=== PATIENT | female | born 1955 | race Caucasian/White ===

== ENCOUNTER 2019-07-24 21:09 | Observation (INO) | payer SELFPAY ==
[~2019-07-24] VITALS: Ht 167.7 cm; Wt 58.4 kg
[~2019-07-24 21:09] MED LIST changes: -ACHD5005 PO; -AMOX500C2 PO; -CLIN300C11 PO; -FLUO40CA12 PO; -IBUP-30 PO; -LISI-552 PO; -METO100T12 PO; -MULT1TAB69 PO; -NF-ZONI100 PO
[2019-07-24] MEDS ORDERED: fentaNYL INJECTION 100 MCG/2 ML AMP IVP ONE (22:00)
--- NOTE | 2019-07-24 22:05 | ED Lower Extremity ---
General Chief Complaint: Lower Extremity Stated Complaint: RT LOWER EXTREMITY PAIN Source: patient Exam Limitations: no limitations (KOKI HE) History of Present Illness Date Seen by Provider: Jul 24, 2019 Time Seen by Provider: 21:45 Initial Comments Patient presents to ER by no private conveyance with her Efren and chief complaint that she fell 16 days ago on Wednesday, July 08. She was walking up her porch approximately 2 steps fell backwards onto her right hip. She had pain at that time and her right hip but was able to walk. She did not get checked out until the bruising and swelling settled down into her foot causing her some difficulty walking about 2 days ago she [place]. She rates her pain now 8 out of 10. She had some leftover oxycodone from her previous injury which she has using for pain but has ran out and is why she went to urgent care. Urgent care ordered CT of her pelvis which was completed outpat ient today and report was called and at 17:30. They called her and told her to come to the ER for management. at the time of the fall she was having no pain low her hip. She's having no numbness or tingling. She does not take blood thinners. She ate dinner at 1730. (KOKI HE) Allergies and Home Medications Allergies Coded Allergies: Sulfa (Sulfonamide Antibiotics) (Verified Allergy, Unknown, 07/25/19) Home Medications Clindamycin Hcl 300 Mg Capsule, 1 EACH PO QID FOR INFECTION Prescribed by: OSVALDO ESPITIA on 08/19/111936 Diclofenac Sodium 75 Mg Tablet.dr, 75 MG PO BID, (Reported) Fluoxetine Hcl 20 Mg Capsule, 1 EACH PO BID, (Reported) Losartan/Hydrochlorothiazide 1 Tab Tablet, 1 TAB PO BID, (Reported) Metoprolol Tartrate 50 Mg Tablet, 1 EACH PO BID, (Reported) Prednisone 5 Mg Tab, 5 MG PO UD TAKE 12 PILLS DAY 1, THEN DECREASE BY 1 PILL A DAY UNTIL GONE FOR RASH Prescribed by: OSVALDO ESPITIA on 08/19/111936 Patient Home Medication List Home Medication List Reviewed: Yes (KOKI HE) Review of Systems Constitutional: No chills, No diaphoresis EENTM: No ear discharge, No ear pain Respiratory: No cough, No phlegm, No short of breath Cardiovascular: No chest pain, No edema Gastrointestinal: No abdominal pain, No constipation, No diarrhea, No nausea Genitourinary: No discharge, No dysuria Musculoskeletal: see HPI; No back pain; joint pain (right hip and right foot) (KOKI HE) Past Vlqhvsv-Yzzxgi-Kpghtw Hx Patient Social History Alcohol Use: Denies Use Alcohol Beverage of Choice: Beer Recreational Drug Use: No Smoking Status: Current Everyday Smoker Type Used: Cigarettes Recent Foreign Travel: No Contact w/Someone Who Travel: No (KOKI HE) Immunizations Up To Date Tetanus Booster (TDap): Unknown PED Vaccines UTD: Yes (KOKI HE) Past Medical History Surgeries: Yes (BOWEL RESECTION) Bowel Surgery, Section Respiratory: No Cardiac: Yes Hypertension Neurological: No Genitourinary: No Gastrointestinal: Yes (BOWEL RESECTION) Musculoskeletal: Yes Fractures Endocrine: No HEENT: No Cancer: No Psychosocial: No Integumentary: No Blood Disorders: No Adverse Reaction/Blood Tranf: No (KOKI HE) Physical Exam Vital Signs Vital Signs - First Documented 07/24/19 21:30 Temp 36.8 Pulse 86 Resp 20 B/P (MAP) 159/104 (122) Pulse Ox 96 O2 Delivery Room Air (DAWOOD MARINELLI MD) Vital Signs Capillary Refill : (KOKI HE) Height, Weight, BMI Height: '" Weight: lbs. oz. kg; BMI Method:Stated General Appearance: WD/WN, mild distress HEENT: PERRL/EOMI, pharynx normal (oral mucosa moist) Neck: full range of motion, normal inspection Cardiovascular: normal peripheral pulses, regular rate, rhythm Respiratory: no respiratory distress, no accessory muscle use Gastrointestinal: normal bowel sounds, non tender, soft Hips: left hip non-tender; bilateral hip normal inspection; left hip normal range of motion, left hip no evidence of injury; right hip bone tenderness (over the greater trochanter) Feet: left foot non-tender, left foot normal inspection; bilateral foot normal range of motion; left foot no evidence of injury; right foot swelling, right foot other (ecchymoses and 1+ pitting edema) Neurologic/Tendon: normal sensation, normal motor functions, responds to pain, no evidence tendon injury Neurologic/Psychiatric: alert, normal mood/affect, oriented x 3 Skin: ecchymosis (right lower extremity) (KOKI HE) Progress/Results/Core Measures Results/Orders Lab Results Laboratory Tests Test 07/24/19 22:23 07/24/19 23:48 Range/Units White Blood Count 11.2 H 4.3-11.0 10^3/uL Red Blood Count 3.34 L 4.35-5.85 10^6/uL Hemoglobin 10.3 L 11.5-16.0 G/DL Hematocrit 33 L 35-52 % Mean Corpuscular Volume 99 80-99 FL Mean Corpuscular Hemoglobin 31 25-34 PG Mean Corpuscular Hemoglobin Concent 31 L 32-36 G/DL Red Cell Distribution Width 16.1 H 10.0-14.5 % Platelet Count 389 130-400 10^3/uL Mean Platelet Volume 10.2 7.4-10.4 FL Neutrophils (%) (Auto) 56 42-75 % Lymphocytes (%) (Auto) 16 12-44 % Monocytes (%) (Auto) 12 0-12 % Eosinophils (%) (Auto) 16 H 0-10 % Basophils (%) (Auto) 0 0-10 % Neutrophils # (Auto) 6.3 1.8-7.8 X 10^3 Lymphocytes # (Auto) 1.8 1.0-4.0 X 10^3 Monocytes # (Auto) 1.3 H 0.0-1.0 X 10^3 Eosinophils # (Auto) 1.7 H 0.0-0.3 10^3/uL Basophils # (Auto) 0.1 0.0-0.1 10^3/uL Neutrophils % (Manual) 60 % Lymphocytes % (Manual) 17 % Monocytes % (Manual) 11 % Eosinophils % (Manual) 10 % Band Neutrophils 1 % Blood Morphology Comment NORMAL Prothrombin Time 12.8 12.2-14.7 SEC INR Comment 0.9 0.8-1.4 Activated Partial Thromboplast Time 27 24-35 SEC Sodium Level 140 135-145 MMOL/L Potassium Level 4.3 3.6-5.0 MMOL/L Chloride Level 105 98-107 MMOL/L Carbon Dioxide Level 22 21-32 MMOL/L Anion Gap 13 5-14 MMOL/L Blood Urea Nitrogen 34 H 7-18 MG/DL Creatinine 2.03 H 0.60-1.30 MG/DL Estimat Glomerular Filtration Rate 25 BUN/Creatinine Ratio 17 Glucose Level 90 70-105 MG/DL Calcium Level 9.4 8.5-10.1 MG/DL Corrected Calcium 9.5 8.5-10.1 MG/DL Total Bilirubin 0.2 0.1-1.0 MG/DL Aspartate Amino Transf (AST/SGOT) 18 5-34 U/L Alanine Aminotransferase (ALT/SGPT) 12 0-55 U/L Alkaline Phosphatase 98 40-136 U/L C-Reactive Protein High Sensitivity 3.94 H 0.00-0.50 MG/DL Total Protein 7.0 6.4-8.2 GM/DL Albumin 3.9 3.2-4.5 GM/DL Urine Color YELLOW Urine Clarity CLEAR Urine pH 6 5-9 Urine Specific [place] 1.010 L 1.016-1.022 Urine Protein NEGATIVE NEGATIVE Urine Glucose (UA) NEGATIVE NEGATIVE Urine Ketones NEGATIVE NEGATIVE Urine Nitrite NEGATIVE NEGATIVE Urine Bilirubin NEGATIVE NEGATIVE Urine Urobilinogen NORMAL NORMAL MG/DL Urine Leukocyte Esterase 2+ H NEGATIVE Urine RBC (Auto) NEGATIVE NEGATIVE Urine RBC NONE /HPF Urine WBC 2-5 /HPF Urine Crystals NONE /LPF Urine Bacteria NEGATIVE /HPF Urine Casts NONE /LPF Urine Mucus NEGATIVE /LPF Urine Culture Indicated NO (DAWOOD MARINELLI MD) My Orders Orders - DAWOOD MARINELLI MD Hs C Reactive Protein (07/24/19 23:33) Ns Iv 1000 Ml (Sodium Chloride 0.9%) (07/24/19 23:52) Enoxaparin Injection (Lovenox Injection) (07/25/19 00:00) Clindamycin 900 Mg/50 Ml Ivpb (Cleocin P (07/25/19 00:00) (DAWOOD MARINELLI MD) Medications Given in ED Current Medications Medications Dose Ordered Sig/Silvino Route Start Time Stop Time Status Last Admin Dose Admin Clindamycin Phosphate/Dextrose 50 ml @ 100 mls/hr ONCE ONCE IV 07/25/19 00:00 07/25/19 00:29 DC 07/25/19 00:30 100 MLS/HR Enoxaparin Sodium 50 mg ONCE ONCE SC 07/25/19 00:00 07/25/19 00:01 DC 07/25/19 00:30 50 MG Fentanyl Citrate 50 mcg ONCE ONCE IVP 07/24/19 22:00 07/24/19 22:01 DC 07/24/19 22:32 50 MCG Sodium Chloride 1,000 ml @ 0 mls/hr Q0M ONCE IV 07/24/19 23:52 07/24/19 23:53 DC 07/25/19 00:29 1,000 MLS/HR (DAWOOD MARINELLI MD) Vital Signs/I&O 07/24/19 21:30 Temp 36.8 Pulse 86 Resp 20 B/P (MAP) 159/104 (122) Pulse Ox 96 O2 Delivery Room Air (DAWOOD MARINELLI MD) Progress Progress Note : Time: 22:07 Progress Note Concern for a venous clot in the right lower extremity related to the fracture and pitting edema on the right side versus maybe just venous compression from all the hematomas and subsequent edema from the fracture. A d-dimer would be unhelpful as it'll likely be elevated. A ultrasound would be very helpful however we do not have that available until tomorrow. We can either put her on Lovenox tonight or consider getting a CT with IV contrast of the lower extremity after we have her kidney function back. (KOKI HE) Progress Note : Time: 00:10 Progress Note Care of this patient was assumed from Dr. He. Labs were reviewed. Patient was reexamined. I have concerns about the heat and erythema of the right foot. This may be cellulitis. We are empirically treating with clindamycin. Patient does not appear septic. I believe DVT is less likely as there seems to be very little calf involvement. However, as a precaution we will give one dose of Lovenox tonight until ultrasound can be obtained. Patient is far enough out from her acute injury that there should be no increased bleeding risk associated with a dose of Lovenox. Patient has elevated BUN and creatinine suggesting acute kidney injury. IV hydration is being started in the ER with 1 L of IV fluids. We are also giving hydrocodone for pain. I discussed the fractures with Dr. Leal and shared CT imaging with him. He does not recommend surgery at this time. He recommends toe-touch weightbearing with walker or crutches. He is happy to see her in the outpatient setting. If patient has a prolonged hospital stay, he can be consulted during her hospital stay as well. I explained the situation to the patient and family. They are agreeable. I discussed the case with Dr. Vital who would like her admitted for observation. Patient would benefit from a PT evaluation and possibly a rehabilitation evaluation. (DAWOOD MARINELLI MD) Initial ECG Impression Date: Jul 24, 2019 Initial ECG Impression Time: 22:20 Initial ECG Rate: 85 Initial ECG Rhythm: Normal Sinus Comment Sinus rhythm with right bundle branch block. Multiple PVCs noted. No ST elevation or depression. (DAWOOD MARINELLI MD) Diagnostic Imaging Diagonstic Imaging: CT Plain Films/CT/US/NM/MRI: pelvis Comments Recent nondisplaced right subcapital femoral neck fracture. Mildly displaced and distracted recent appearing right greater trochanteric fracture. Scattered degenerative changes particularly in the lumbar spine with resulting bilateral neural foraminal stenoses. Hypodensity in the right inguinal region likely related to intramuscular hematoma with possible slight tearing of the right iliopsoas musculature. Focalin large lymph node felt less likely. Soft tissue swelling about right hip with associated intramuscular hematomas. Reviewed: Reviewed by Me (KOKI HE) Transfer of Care Time: 22:09 Care transferred to: Dr. Hdz (KOKI HE) Departure Communication (Admissions) Time/Spoke to Admitting Phy: 23:55 Dr. Vital (DAWOOD MARINELLI MD) Impression Primary Impression: Cellulitis of right foot Additional Impressions: Acute kidney injury Closed right hip fracture Qualified Codes: S72.001A - Fracture of unspecified part of neck of right femur, initial encounter for closed fracture Disposition: ADMITTED INPATIENT Condition: Improved Admissions Decision to Admit Reason: Admit from ER (General) Decision to Admit/Date: Jul 25, 2019 Time/Decision to Admit Time: 22:10 (DAWOOD MARINELLI MD) Departure-Patient Inst. Referrals: [facility] (PCP) Primary Care Physician AMPARO ASHLEY APRN (Family) Primary Care Physician Copy Copies To 1: YARED LEAL TITUS J Jul 24, 2019 22:05 DAWOOD HARO MD Jul 25, 2019 00:16 POS
[2019-07-24] MEDS: LACTATED RINGERS 1,000 ML IV SCH (22:32)
[2019-07-24 22:37] LABS: BASOPHILS # (AUTO) 0.1 10^3/uL (0.0-0.1); BASOPHILS % (AUTO) 0 % (0-10); EOSINOPHILS # (AUTO) 1.7 10^3/uL (0.0-0.3); EOSINOPHILS % (AUTO) 16 % (0-10); HEMATOCRIT 33 % (35-52); HEMOGLOBIN 10.3 G/DL (11.5-16.0); LYMPHOCYTES # (AUTO) 1.8 X 10^3 (1.0-4.0); LYMPHOCYTES % (AUTO) 16 % (12-44); MEAN CORPUSCULAR HEMOGLOBIN 31 PG (25-34); MEAN CORPUSCULAR HGB CONC 31 G/DL (32-36); MEAN CORPUSCULAR VOLUME 99 FL (80-99); MEAN PLATELET VOLUME 10.2 FL (7.4-10.4); MONOCYTES # (AUTO) 1.3 X 10^3 (0.0-1.0); MONOCYTES % (AUTO) 12 % (0-12); NEUTROPHILS # (AUTO) 6.3 X 10^3 (1.8-7.8); NEUTROPHILS % (AUTO) 56 % (42-75); PLATELET COUNT 389 10^3/uL (130-400); RED CELL DISTRIBUTION WIDTH 16.1 % (10.0-14.5); WHITE BLOOD COUNT 11.2 10^3/uL (4.3-11.0)
[2019-07-24 22:50] LABS: INR 0.9 (0.8-1.4); PROTHROMBIN TIME PATIENT 12.8 SEC (12.2-14.7)
[2019-07-24 22:56] LABS: ALBUMIN 3.9 GM/DL (3.2-4.5); BILIRUBIN,TOTAL 0.2 MG/DL (0.1-1.0); CALCIUM 9.4 MG/DL (8.5-10.1); CREATININE SERUM 2.03 MG/DL (0.60-1.30); POTASSIUM 4.3 MMOL/L (3.6-5.0)
[2019-07-24 23:18] LABS: BAND NEUTROPHILS 1 %; EOSINOPHILS % (MANUAL) 10 %; LYMPHOCYTES % (MANUAL) 17 %; MONOCYTES % (MANUAL) 11 %; NEUTROPHILS % (MANUAL) 60 %; RBC MORPH NORMAL
[2019-07-24] MEDS ORDERED: NS IV 1000 ML 1,000 ML IV ONE (23:52)
[2019-07-24 23:55] LABS: BILIRUBIN,URINE NEGATIVE (NEGATIVE); CLARITY,URINE CLEAR; COLOR,URINE YELLOW; GLUCOSE, URINE (UA) NEGATIVE (NEGATIVE); KETONES,URINE NEGATIVE (NEGATIVE); LEUKOCYTE ESTERASE ,URINE 2+ (NEGATIVE); NITRITE,URINE NEGATIVE (NEGATIVE); PH,URINE 6 (5-9); PROTEIN,URINE NEGATIVE (NEGATIVE)
[2019-07-25] VITALS (7 sets, daily range): BP systolic 138–160; BP diastolic 74–100
[2019-07-25] MEDS ORDERED: ENOXAPARIN 60 MG/0.6 ML (LOVENOX) SYR SC ONE
[2019-07-25] MEDS ORDERED: CLINDAMYCIN 900 MG/50 ML IVPB 50 ML IV ONE
[2019-07-25 00:03] LABS: BACTERIA,URINE NEGATIVE /HPF
[2019-07-25] MEDS ORDERED: HYDROcodone/APAP 5 MG/325 MG (LORTAB) TAB ONE (00:20)
[2019-07-25] MEDS ORDERED: HYDROcodone/APAP 5 MG/325 MG (LORTAB) TAB PO ONE (00:30)
--- NOTE | 2019-07-25 01:45 | NUR ---
DINH CRUZ admitted to room 422-1, with an admitting diagnosis of Cellulitis at right foot, right hip fracture, and SARAH on 07/25/19 from ED via wheelchair, accompanied by staff and family.DINH CRUZ introduced to surroundings, call light, bed controls, phone, TV, temperature control, lights, meal times, smoking policy, visitor policy, side rail policy, bathrooms and showers. Patient Rights given to patient in the handbook. DINH CRUZ verbalizes understanding that [facility] is not responsible for the loss or damage to any personal effects or valuables that are kept in the patients posession during their hospitalization.
[2019-07-25] MEDS: HYDROcodone/APAP 5 MG/325 MG (LORTAB) TAB PO PRN ×5 (04:54→20:06)
[2019-07-25 05:29] LABS: BASOPHILS % (AUTO) 0 % (0-10); EOSINOPHILS # (AUTO) 1.4 10^3/uL (0.0-0.3); EOSINOPHILS % (AUTO) 16 % (0-10); HEMATOCRIT 30 % (35-52); HEMOGLOBIN 9.4 G/DL (11.5-16.0); LYMPHOCYTES # (AUTO) 1.9 X 10^3 (1.0-4.0); LYMPHOCYTES % (AUTO) 22 % (12-44); MEAN CORPUSCULAR HEMOGLOBIN 31 PG (25-34); MEAN CORPUSCULAR HGB CONC 31 G/DL (32-36); MEAN CORPUSCULAR VOLUME 99 FL (80-99); MEAN PLATELET VOLUME 10.2 FL (7.4-10.4); MONOCYTES # (AUTO) 0.9 X 10^3 (0.0-1.0); MONOCYTES % (AUTO) 10 % (0-12); NEUTROPHILS # (AUTO) 4.7 X 10^3 (1.8-7.8); NEUTROPHILS % (AUTO) 53 % (42-75); PLATELET COUNT 366 10^3/uL (130-400); WHITE BLOOD COUNT 8.9 10^3/uL (4.3-11.0)
[2019-07-25 05:53] LABS: CALCIUM 9.1 MG/DL (8.5-10.1); CREATININE SERUM 1.68 MG/DL (0.60-1.30); POTASSIUM 3.9 MMOL/L (3.6-5.0)
[2019-07-25] MEDS: NS IV 1000 ML 1,000 ML IV SCH ×3 (06:19→21:44)
[2019-07-25] MEDS: LACTATED RINGERS 1,000 ML IV SCH (08:53)
[2019-07-25] MEDS: CLINDAMYCIN 900 MG/50 ML IVPB 50 ML IV SCH ×2 (08:53→15:23)
--- NOTE | 2019-07-25 09:05 | Diagnostic Imaging Report ---
EXAMINATION: US Right Lower Extremity Venous Duplex. TECHNIQUE: Multiple real-time grayscale images were obtained over the right lower extremity in various projections. Additional spectral analysis and color Doppler duplex images were also obtained. HISTORY: Swelling FINDINGS: No comparison available. The right common femoral vein, deep femoral vein, superficial femoral vein and popliteal vein are patent with normal garcia scale and doppler appearance. There is normal respiratory variation and augmentation. IMPRESSION: 1. No DVT of the right lower extremity. Dictated by: Dictated on workstation # [id number]
--- NOTE | 2019-07-25 09:35 | Physical Therapy Evaluation ---
PT Evaluation-General Medical Diagnosis Admission Date Jul 25, 2019 at 00:16 Medical Diagnosis: R hip fracture, R foot cellulitis, SARAH Onset Date: Jul 25, 2019 Therapy Diagnosis Therapy Diagnosis: Generalized weakness/debility Precautions Precautions/Isolations: Fall Prevention, Standard Precautions Weight Bear Status Right Lower Extremity: Right Touch Toe Bearing Left Lower Extremity: Left Weight Bearing/Tolerated Toe touch weight bearing on RLE Referral Physician: Zahraa Reason for Referral: Evaluation/Treatment Medical History Pertinent Medical History: Smoking Current History Arrived at ER with persistent R foot pain and difficulty weightbearing. Fell off steps 16 days prior to admission and fx R hip without knowing. Reviewed History: Yes Social History Home: Single Level Current Living Status: Spouse Entry Into Home: Stairs With Railing PT Steps Into Home: 3 PT Steps Inside Home: 0 Prior Prior Level of Function SCALE: Activities may be completed with or without assistive devices. 8-Dkdkrzwobf-ujqoflf completes the activity by him/herself with no assistance from a helper. 5-Set-up or Clean-up Assistance-helper sets up or cleans up; patient completes activity. [place] assists only prior to or following the activity. 4-Supervision or Touching Assistance-helper provides verbal cues and/or touching/steadying and/or contact guard assistance as patient completes activity. Assistance may be provided throughout the activity or intermittently. 3-Partial/Moderate Assistance-helper does LESS THAN HALF the effort. [place] lifts, holds or supports trunk or limbs, but provides less than half the effort. 2-Substantial/Maximal Assistance-helper does MORE THAN HALF the effort. [place] lifts or holds trunk or limbs and provides more than half the effort. 8-Elllmpxwv-uczxed does ALL the effort. Patient does none of the effort to complete the activity. Or, the assistance of 2 or more helpers is required for the patient to complete the activity. If activity was not attempted, code reason: 7-Patient Refused. 9-Not Applicable-not attempted and the patient did not perform the activity before the current illness, exacerbation or injury. 10-Not Attempted due to Environmental Limitations-(lack of equipment, weather restraints, etc.). 88-Not Attempted due to Medical Conditions or Safety Concerns. Bed Mobility: 6 Transfers (B,C,W/C): 6 Gait: 6 Stairs: 6 Indoor Mobility (Ambulation): Independent Stairs: Independent Prior Devices Use: None PT Evaluation-Current Subjective Patient and agree to PT at this time. Patient reports that she has difficulty with TTWB because it hurts the R foot to walk on the ball of foot. Pain Numeric Pain Scale: 8 Location: Right Location Body Site: Foot Pain Description: Ache Comment: and hip Objective Patient Orientation: Person, Place, Time, Situation Problem Solving: Good Attachments: IV ROM/Strength ROM Lower Extremities WFL; limited R foot DF d/t swelling Strength Lower Extremities grossly 4/5 Integumentary/Posture Integumentary See nursing notes Bowel Incontinence: No Bladder Incontinence: No Posture WFL Neuromuscular (Tone, Coordination, Reflexes) grossly intact Sensory Vision: Functional Hearing: Functional Transfers Roll Left to Right (QC): 6 Lying to Sitting/Side of Bed(Q: 6 Sit to Stand (QC): 6 Gait Does the Patient Walk?: Yes Mode of Locomotion: Walk Anticipated Mode of Locomotion: Walk Distance (FIM): 3=007-86 ft Walk 10 feet (QC): 6 Walk 50 ft with 2 Turns(QC): 88 Walk 150 ft (QC): 88 Walking 10ft/uneven surface-QC: 88 Distance: 20' Gait Assistive Device: FWW Comments/Gait Description Difficulty with TTWB and WB through UE on walker, step to pattern, sometimes NWB on R foot Balance Sitting Static: Normal Sitting Dynamic: Normal Standing Static: Normal Standing Dynamic: Normal Picking up an Object (QC): 88 Treatment seated EX: LAQ, ankle pumps x10 Assessment/Needs Patient able to perform bed mobility and transfers independently without assistance or cues. Patient educated on definition of TTWB and how to perform ambulation with walker. Patient able to demonstrate TTWB for 20' in room. Patient able to transfer to chair independently and tolerated seated LE exercises well. Rehab Potential: Good PT Sand Miller Goals Sand Miller Goals PT Sand Miller Goals Time Frame: Aug 04, 2019 Sit to Lying (QC): 6 Lying-Sitting on Side/Bed(QC): 6 Sit to Stand (QC): 6 Roll Left to Right (QC): 6 Chair/Vzs-ft-Qxxom Xfer(QC): 6 Car Transfer (QC): 6 Does the Patient Walk: Yes Distance: 200' Walk 10 feet (QC): 6 Walk 10ft-Uneven Surface(QC): 6 Walk 50ft with 2 Turns (QC): 6 Walk 150 ft (QC): 6 Gait Assistive Device: FWW # of Steps: 3 1 Step (curb) (QC): 6 PT Plan Problem List Problem List: Activity Tolerance, Functional Strength, Safety, Balance, Gait, Transfer, Bed Mobility Treatment/Plan Treatment Plan: Continue Plan of Care Treatment Plan: Bed Mobility, Education, Functional Activity Christina, Functional Strength, Gait, Safety, Therapeutic Exercise, Transfers Treatment Duration: Aug 04, 2019 Frequency: 11 times per week Estimated Hrs Per Day: .5 hour per day Patient and/or Family Agrees t: Yes Safety Risks/Education Patient Education: Gait Training Teaching Recipient: Patient Teaching Methods: Demonstration, Discussion Response to Teaching: Verbalize Understanding, Return Demonstration Time/GCodes Time In: 815 Time Out: 831 Total Billed Treatment Time: 16 Total Billed Treatment 1 visit EVM 16min AKI HURST PT Jul 25, 2019 09:35 POS
[2019-07-25] MEDS ORDERED: METO100T12 PO (10:07)
[2019-07-25] MEDS ORDERED: IBUP-30 PO (10:07)
[2019-07-25] MEDS ORDERED: NF-ZONI100 PO ×2 (10:07)
[2019-07-25] MEDS ORDERED: MULT1TAB69 PO (10:07)
[2019-07-25] MEDS ORDERED: FLUO40CA12 PO (10:26)
[2019-07-25] MEDS ORDERED: AMOX500C2 PO (10:27)
--- NOTE | 2019-07-25 10:28 | NUR ---
CALLED [facility] FOR A LIST OF RECENTLY FILLED MEDICATIONS. WENT OVER IT WITH THE PATIENT. [facility] FILLED: 07-04-19 METOPROLOL TARTRATE 100MG BID 06-30-19 PERCOCET 5-325MG TID #84 (STATES THIS IS GONE AND THEY WILL NOT PRESCRIBE IT ANYMORE) 06-26-19 PROZAC 40MG BID #180 (TAKES 2 IN THE AM) 06-14-19 CELEBREX 200MG DAILY #30 (STOPPED, DID NOT FEEL IT WORKED) 06-06-19 ZONEGRAN 100MG 3 DAILY #90 (TAKES 1 AM SCHEDULED AND 1 BID PRN SEIZURE ACTIVITY) 02-01-19 LORAZEPAM 1MG DAILY PRN (NO LONGER TAKING, THEY WILL NOT REFILL) [facility] FILLED AMOXICILLIN 07-22-19 - THAT SAME DAY SHE HAD A SCRIPT FOR HYDROCODONE, THEY DID NOT FILL IT AND DO NOT HAVE THE SCRIPT ANYMORE SO IT IS ASSUMED THEY GAVE IT BACK TO THE PATIENT. IT HAS NOT BEEN FILLED ACCORDING TO [facility]. SHE TAKES A MTV DAILY AND IBU 4 PRN OTC.
--- NOTE | 2019-07-25 11:38 | History & Physical ---
MER VEE,MED STUDENT 07/25/19 1138: HPI History of Present Illness: 64 yo female presented to the ED for right hip pain and swelling/redness of RLE. She states she had a fall 07/08/19 when she missed a step and fell backward onto her right hip. She noted some swelling, bruising and mild pain to the area immediately but continued to ambulate. The pain started to worsen about 5 days ago along with redness and swelling of her right foot. She states her right foot feels "tight" from the swelling and is tender making it hard to ambulate. She was seen in urgent care yesterday and an outpatient CT was ordered, from there she was seen in the ED and admitted. Source: patient Exam Limitations: no limitations Date seen by provider: Jul 25, 2019 Time Seen by Provider: 10:10 Attending Physician Ricci Chavarria MD PCP [facility] Of Consult Date of Admission Jul 25, 2019 at 00:16 Home Medications Home Medications Reviewed patient Home Medication Reconciliation performed by pharmacy medication reconciliations research laboratory technician and/or nursing. Patients Allergies have been reviewed. Allergies Coded Allergies: Sulfa (Sulfonamide Antibiotics) (Verified Allergy, Unknown, 07/25/19) JQC-Naljce-Gnuceq Hx Patient Social History Marrital Status: Alcohol Use: Denies Use Recreational Drug Use: No Smoking Status: Current Everyday Smoker Type Used: Cigarettes Recent Foreign Travel: No Contact w/other who traveled: No Recent Infectious Disease Expo: No Immunizations Up To Date Tetanus Booster (TDap): Unknown Date of Influenza Vaccine: Jun 24, 2019 Past Medical History PMedHx: Hypertension PSurgHx: bowel resection Review of Systems ([facility]) Constitutional: No chills, No fever EENTM: No blurred vision, No nose congestion, No throat pain Respiratory: No cough, No short of breath Cardiovascular: No chest pain, No syncope Gastrointestinal: No abdominal pain, No constipation, No diarrhea, No nausea, No vomiting Genitourinary: No dysuria, No frequency, No incontinence Musculoskeletal: joint swelling, other (left leg/foot pain) Skin: No pruritus; other (redness/swelling of right foot, brusing along right LE) Psychiatric/Neurological: Denies Headache, Denies Weakness Reviewed Test Results Reviewed Test Results Lab Laboratory Tests 07/24/19 22:23: White Blood Count 11.2H, Red Blood Count 3.34L, Hemoglobin 10.3L, Hematocrit 33L, Mean Corpuscular Volume 99, Mean Corpuscular Hemoglobin 31, Mean Corpuscular Hemoglobin Concent 31L, Red Cell Distribution Width 16.1H, Platelet Count 389, Mean Platelet Volume 10.2, Neutrophils (%) (Auto) 56, Lymphocytes (%) (Auto) 16, Monocytes (%) (Auto) 12, Eosinophils (%) (Auto) 16H, Basophils (%) (Auto) 0, Neutrophils # (Auto) 6.3, Lymphocytes # (Auto) 1.8, Monocytes # (Auto) 1.3H, Eosinophils # (Auto) 1.7H, Basophils # (Auto) 0.1, Neutrophils % (Manual) 60, Lymphocytes % (Manual) 17, Monocytes % (Manual) 11, Eosinophils % (Manual) 10, Band Neutrophils 1, Blood Morphology Comment NORMAL, Prothrombin Time 12.8, INR Comment 0.9, Activated Partial Thromboplast Time 27, Sodium Level 140, Potassium Level 4.3, Chloride Level 105, Carbon Dioxide Level 22, Anion Gap 13, Blood Urea Nitrogen 34H, Creatinine 2.03H, Estimat Glomerular Filtration Rate 25, BUN/Creatinine Ratio 17, Glucose Level 90, Calcium Level 9.4, Corrected Calcium 9.5, Total Bilirubin 0.2, Aspartate Amino Transf (AST/SGOT) 18, Alanine Aminotransferase (ALT/SGPT) 12, Alkaline Phosphatase 98, C-Reactive Protein High Sensitivity 3.94H, Total Protein 7.0, Albumin 3.9 07/24/19 23:48: Urine Color YELLOW, Urine Clarity CLEAR, Urine pH 6, Urine Specific [place] 1.010L, Urine Protein NEGATIVE, Urine Glucose (UA) NEGATIVE, Urine Ketones NEGATIVE, Urine Nitrite NEGATIVE, Urine Bilirubin NEGATIVE, Urine Urobilinogen NORMAL, Urine Leukocyte Esterase 2+H, Urine RBC (Auto) NEGATIVE, Urine RBC NONE, Urine WBC 2-5, Urine Crystals NONE, Urine Bacteria NEGATIVE, Urine Casts NONE, Urine Mucus NEGATIVE, Urine Culture Indicated NO 07/25/19 04:59: White Blood Count 8.9, Red Blood Count 3.07L, Hemoglobin 9.4L, Hematocrit 30L, Mean Corpuscular Volume 99, Mean Corpuscular Hemoglobin 31, Mean Corpuscular Hemoglobin Concent 31L, Red Cell Distribution Width 16.0H, Platelet Count 366, Mean Platelet Volume 10.2, Neutrophils (%) (Auto) 53, Lymphocytes (%) (Auto) 22, Monocytes (%) (Auto) 10, Eosinophils (%) (Auto) 16H, Basophils (%) (Auto) 0, Neutrophils # (Auto) 4.7, Lymphocytes # (Auto) 1.9, Monocytes # (Auto) 0.9, Eosinophils # (Auto) 1.4H, Basophils # (Auto) 0.0, Sodium Level 142, Potassium Level 3.9, Chloride Level 109H, Carbon Dioxide Level 21, Anion Gap 12, Blood Urea Nitrogen 31H, Creatinine 1.68H, Estimat Glomerular Filtration Rate 31, BUN/Creatinine Ratio 18, Glucose Level 86, Calcium Level 9.1, C-Reactive Protein High Sensitivity 4.24H Radiology LE Doppler: No DVT of the right lower extremity. Hip CT: Recent nondisplaced right subcapital femoral neck fracture. Mildly displaced and distracted recent appearing right greater trochanteric fracture. Scattered degenerative changes, particularly within the lower lumbar spine were there is resulting bilateral neural foraminal stenosis. Hypodensity within the right inguinal region is felt to relate to intramuscular hematoma with possible slight tearing of the right iliopsoas musculature. Focal enlarged lymph node felt less likely. Ultrasound versus contrast enhanced CT would help to further evaluate. Soft tissue swelling about the right hip with associated intramuscular hematomas. Physical Exam-([facility]) Physical Exam Vital Signs VS - Last 72 Hours, by Label POS 07/24/19 07/25/19 07/25/19 07/25/19 21:30 01:39 02:29 03:41 Temp 36.8 36.8 36.1 Pulse 86 66 90 Resp 20 20 18 B/P (MAP) 159/104 (122) 152/91 (122) 160/100 Pulse Ox 96 96 99 O2 Delivery Room Air Room Air Room Air Room Air 07/25/19 07/25/19 07/25/19 07/25/19 04:25 08:00 08:00 09:36 Temp 36.2 36.8 36.8 Pulse 90 89 89 Resp 16 18 18 B/P (MAP) 141/92 (108) 153/74 (100) 153/74 (100) Pulse Ox 97 94 94 94 O2 Delivery Room Air Room Air Room Air Room Air Capillary Refill : Less Than 3 SecondsLess Than 3 Seconds General Appearance: WD/WN, no apparent distress HEENT: PERRL/EOMI; No scleral icterus (R), No scleral icterus (L) Neck: full range of motion, supple Respiratory: chest non-tender, lungs clear, normal breath sounds, no respiratory distress, no accessory muscle use Cardiovascular: regular rate, rhythm, no murmur Peripheral Pulses: 2+ Dorsalis Pedis (R), 2+ Left Dors-Pedis (L), 2+ Radial Pulses (R), 2+ Radial Pulses (L) Gastrointestinal: normal bowel sounds, non tender, soft, no organomegaly; No distended, No guarding, No rebound Extremities: no calf tenderness, swelling (minimal along RLE), other (right hip tender to palpation, normal sensation bilateral LE) Neurologic/Psychiatric: alert, oriented x 3, other Skin: ecchymosis (RLE), other (erythema and swelling R foot) Assessment/Plan Assessment/Plan Assessment & Plan 64 yo female with closed hip fracture from fall 07/08 and right foot cellulitis. Cellulitis of right foot Closed R hip fracture Continue IV Abx and IVF. Monitor erythema and swelling of RLE Ortho consulted - will follow-up outpatient per Dr. Leal Pain management as needed. Clinical Quality Measures DVT/VTE Risk/Contraindication: Risk Factor Score Per Nursin RFS Level Per Nursing on Admit: 4+=Very High RICCI CHAVARRIA MD 07/25/19 1728: HPI History of Present Illness: Agree with above Source: patient Exam Limitations: no limitations Home Medications Allergies Coded Allergies: Sulfa (Sulfonamide Antibiotics) (Verified Allergy, Unknown, 07/25/19) VQC-Bkrxpv-Uyljml Hx Patient Social History Living Status: Lives at home with Family Medical History Significant Family History: No Pertinent Family Hx Review of Systems ([facility]) Constitutional: no symptoms reported; No chills, No fever EENTM: no symptoms reported Respiratory: no symptoms reported; No cough, No short of breath Cardiovascular: no symptoms reported; No chest pain, No palpitations Gastrointestinal: no symptoms reported; No abdominal pain, No constipation, No diarrhea, No loss of appetite, No nausea, No vomiting Genitourinary: No dysuria, No frequency, No incontinence Musculoskeletal: joint swelling, other (left leg/foot pain) Skin: No pruritus; other Psychiatric/Neurological: No Symptoms Reported; Denies Headache, Denies Weakness Physical Exam-([facility]) Physical Exam General Appearance: WD/WN, no apparent distress HEENT: PERRL/EOMI Neck: non-tender, full range of motion Respiratory: chest non-tender, lungs clear, normal breath sounds, no respiratory distress, no accessory muscle use Cardiovascular: regular rate, rhythm, no murmur Gastrointestinal: normal bowel sounds, non tender, soft, no organomegaly Back: no CVA tenderness, no vertebral tenderness Extremities: swelling (minimal along RLE), other (right hip tender to palpation, normal sensation bilateral LE) Neurologic/Psychiatric: learning consultant II-XII nml as tested, no motor/sensory deficits, alert, oriented x 3, other Skin: other (erythema and swelling R foot) Lymphatic: no adenopathy Assessment/Plan Assessment/Plan Admission Status: Observation (1) Cellulitis of right foot Status: Acute Assessment & Plan: - Continue IV antibiotics, Will likely transition to PO antibiotics in the AM (2) Acute kidney injury Status: Acute Assessment & Plan: - Improving, will repeat BMP in AM (3) Closed right hip fracture Status: Acute Assessment & Plan: - Outpatient f.u Qualifiers: Qualified Codes: S72.001A - Fracture of unspecified part of neck of right femur, initial encounter for closed fracture (4) Seizure disorder Status: Chronic Assessment & Plan: - Continue home meds (5) HTN (hypertension) Status: Chronic Assessment & Plan: - Continue home meds Qualifiers: Qualified Codes: I10 - Essential (primary) hypertension Supervisory-Addendum Brief Verification & Attestation Participated in pt care: history, physical Personally performed: exam, history Care discussed with: Medical Student Procedures: n/a Verification and Attestation of Medical Student E/M Service A medical student performed and documented this service in my presence. I review ed and verified all information documented by the medical student and made modifications to such information, when appropriate. I personally performed the physical exam and medical decision making. Ricci Chavarria, Jul 25, 2019,17:46 MER VEE MED STUDENT Jul 25, 2019 11:38 RICCI HINDS MD Jul 25, 2019 17:28 POS
--- NOTE | 2019-07-25 15:25 | Physical Therapy Progress Note ---
Therapy Progress Note Patient declines PT at this time and has family present in the room. Patient states that she has been completing ankle pump and heel slide exercises in bed throughout the day and has been up to the bathroom 3 times. AIK HURST PT Jul 25, 2019 15:25 POS
[2019-07-25] MEDS: meTOprolol TARTRATE 50 MG (LOPRESSOR) TAB PO SCH (21:43)
[2019-07-26 00:05] VITALS: BP 163/99
[2019-07-26] MEDS: CLINDAMYCIN 900 MG/50 ML IVPB 50 ML IV SCH ×2 (00:26→07:47)
[2019-07-26] MEDS: HYDROcodone/APAP 5 MG/325 MG (LORTAB) TAB PO PRN ×3 (00:26→12:15)
[2019-07-26 04:00] VITALS: BP 163/99
[2019-07-26 04:45] VITALS: BP 167/100
[2019-07-26 05:47] LABS: BASOPHILS % (AUTO) 0 % (0-10); EOSINOPHILS # (AUTO) 1.3 10^3/uL (0.0-0.3); EOSINOPHILS % (AUTO) 15 % (0-10); HEMATOCRIT 31 % (35-52); HEMOGLOBIN 9.7 G/DL (11.5-16.0); LYMPHOCYTES # (AUTO) 1.6 X 10^3 (1.0-4.0); LYMPHOCYTES % (AUTO) 18 % (12-44); MEAN CORPUSCULAR HEMOGLOBIN 31 PG (25-34); MEAN CORPUSCULAR HGB CONC 32 G/DL (32-36); MEAN CORPUSCULAR VOLUME 98 FL (80-99); MONOCYTES # (AUTO) 0.9 X 10^3 (0.0-1.0); MONOCYTES % (AUTO) 11 % (0-12); NEUTROPHILS # (AUTO) 4.9 X 10^3 (1.8-7.8); NEUTROPHILS % (AUTO) 56 % (42-75); PLATELET COUNT 350 10^3/uL (130-400); RED CELL DISTRIBUTION WIDTH 15.9 % (10.0-14.5); WHITE BLOOD COUNT 8.7 10^3/uL (4.3-11.0)
[2019-07-26 06:06] LABS: CALCIUM 9.2 MG/DL (8.5-10.1); CREATININE SERUM 1.09 MG/DL (0.60-1.30)
[2019-07-26] MEDS: meTOprolol TARTRATE 50 MG (LOPRESSOR) TAB PO SCH (07:47)
[2019-07-26] MEDS: NS IV 1000 ML 1,000 ML IV SCH (07:50)
[2019-07-26 08:00] VITALS: BP 142/88
[2019-07-26] MEDS ORDERED: FLUoxetine HCL 20 MG (PROzac) CAP PO SCH (09:00)
[2019-07-26] MEDS ORDERED: ZONISAMIDE 100 MG CAP (ZONEGRAN) NON-FORMULARY PO SCH (09:00)
[2019-07-26] MEDS ORDERED: lisINopril 20 MG (PRINIVIL) TABLET PO SCH (09:30)
--- NOTE | 2019-07-26 11:04 | Physical Therapy Daily Note ---
PT Daily Note-Current Subjective Pt on EOB pre-tx. Pt agrees to PT this morning. Pt reports 10/10 pain in her R hip at this time and reports RN is aware and just gave pain meds. Pt reports she has been getting up on her own to go to the bathroom or to the chair. Pt states she has been getting up and unplugging her IV pole and walking with it instead of walker. Pt reports she is having difficulty maintaining TTWB with the IV pole. Appearance Pt in recliner with feet down post-tx. Pt with nurse call light, room phone, and tray table in reach with all needs met at this time. Mental Status Patient Orientation: Person, Place, Time, Situation Transfers SCALE: Activities may be completed with or without assistive devices. 6-Iwschhejjz-sjuulet completes the activity by him/herself with no assistance from a helper. 5-Set-up or Clean-up Assistance-helper sets up or cleans up; patient completes activity. [place] assists only prior to or following the activity. 4-Supervision or Touching Assistance-helper provides verbal cues and/or touching/steadying and/or contact guard assistance as patient completes activity. Assistance may be provided throughout the activity or intermittently. 3-Partial/Moderate Assistance-helper does LESS THAN HALF the effort. [place] lifts, holds or supports trunk or limbs, but provides less than half the effort. 2-Substantial/Maximal Assistance-helper does MORE THAN HALF the effort. [place] lifts or holds trunk or limbs and provides more than half the effort. 4-Yxtkxuvhg-tptidn does ALL the effort. Patient does none of the effort to complete the activity. Or, the assistance of 2 or more helpers is required for the patient to complete the activity. If activity was not attempted, code reason: 7-Patient Refused. 9-Not Applicable-not attempted and the patient did not perform the activity before the current illness, exacerbation or injury. 10-Not Attempted due to Environmental Limitations-(lack of equipment, weather restraints, etc.). 88-Not Attempted due to Medical Conditions or Safety Concerns. Sit to Stand (QC): 6 Chair/Kwj-kn-Yxmcx Xfer(QC): 6 Weight Bearing Right Lower Extremity: Right Touch Toe Bearing Left Lower Extremity: Left Weight Bearing/Tolerated Toe touch weight bearing on RLE Gait Training Does the Patient Walk?: Yes Distance: 40' Walk 10 feet (QC): 5 Gait Assistive Device: FWW PT advised pt of need for FWW to allow her to follow WB status and for safety over just using the IV pole. Pt verbally responded with understanding. Wheelchair Training Does the Pt Use a Wheelchair?: No Exercises Seated Therapy Exercises: Ankle pumps, Long arc quads, Hip flexion Seated Reps: 30 (15reps 2 sets) Treatments LE strengthening, Skilled ambulation training, transfer training. Assessment Current Status: Good Progress Pt is able to maintain WB status on the R LE when using the FWW. Pt c/o UE fatigue from ambulation. Pt demonstrated increased radha for gait distance. Advised patient to call nurse to help with IV pole when she has to get up. PT Coat Operator Goals Coat Operator Goals PT Mcfp Goals Time Frame: Aug 04, 2019 Sit to Lying (QC): 6 Lying-Sitting on Side/Bed(QC): 6 Sit to Stand (QC): 6 Roll Left to Right (QC): 6 Chair/Cqw-qt-Wzjpu Xfer(QC): 6 Car Transfer (QC): 6 Does the Patient Walk: Yes Distance: 200' Walk 10 feet (QC): 6 Walk 10ft-Uneven Surface(QC): 6 Walk 50ft with 2 Turns (QC): 6 Walk 150 ft (QC): 6 Gait Assistive Device: FWW # of Steps: 3 1 Step (curb) (QC): 6 PT Plan Problem List Problem List: Activity Tolerance, Functional Strength, Safety, Balance, Gait, Transfer Treatment/Plan Treatment Plan: Continue Plan of Care Treatment Plan: Bed Mobility, Education, Functional Activity Christina, Functional Strength, Gait, Safety, Therapeutic Exercise, Transfers Treatment Duration: Aug 04, 2019 Frequency: 11 times per week Estimated Hrs Per Day: .5 hour per day Patient and/or Family Agrees t: Yes Safety Risks/Education Patient Education: Gait Training, Transfer Techniques, Correct Positioning, Safety Issues Teaching Recipient: Patient Teaching Methods: Demonstration, Discussion Response to Teaching: Return Demonstration, Reinforcement Needed Time/GCodes Time In: 858 Time Out: 913 Total Billed Treatment Time: 15 Total Billed Treatment 1 visit FA 15' DORYSGILMER SANCHEZIS PT Jul 26, 2019 11:04 POS
[2019-07-26 12:36] VITALS: BP 169/82
--- NOTE | 2019-07-26 13:29 | Discharge Summary ---
Diagnosis/Chief Complaint Date of Admission Jul 25, 2019 at 00:16 Date of Discharge Discharge Diagnosis Problems/Diagnosis: (1) Cellulitis of right foot Assessment & Plan: - Continue IV antibiotics, Will likely transition to PO antibiotics in the AM Status: Acute (2) Acute kidney injury Assessment & Plan: - Improving, will repeat BMP in AM Status: Acute (3) Closed right hip fracture Assessment & Plan: - Outpatient f.u Qualifiers: Qualified Codes: S72.001A - Fracture of unspecified part of neck of right femur, initial encounter for closed fracture Status: Acute (4) Seizure disorder Assessment & Plan: - Continue home meds Status: Chronic (5) HTN (hypertension) Assessment & Plan: - Continue home meds Qualifiers: Qualified Codes: I10 - Essential (primary) hypertension Status: Chronic Chief Complaint/HPI Chief Complaint/HPI Agree with above Discharge Summary-Simple/Stand Consultations Discharge Physical Examination Allergies: Coded Allergies: Sulfa (Sulfonamide Antibiotics) (Verified Allergy, Unknown, 07/25/19) Vitals & I&Os Vital Sign - Last 12Hours Date Time Temp Pulse Resp B/P (MAP) Pulse Ox O2 Delivery O2 Flow Rate FiO2 07/26/19 12:36 36.0 90 16 169/82 (111) 96 Room Air Intake and Output 07/26/19 00:00 Intake Total 2340 ml Output Total 1800 ml Balance 540 ml Hospital Course See final discharge diagnosis. Radiology Reviewed LE Doppler: No DVT of the right lower extremity. Hip CT: Recent nondisplaced right subcapital femoral neck fracture. Mildly displaced and distracted recent appearing right greater trochanteric fracture. Scattered degenerative changes, particularly within the lower lumbar spine were there is resulting bilateral neural foraminal stenosis. Hypodensity within the right inguinal region is felt to relate to intramuscular hematoma with possible slight tearing of the right iliopsoas musculature. Focal enlarged lymph node felt less likely. Ultrasound versus contrast enhanced CT would help to further evaluate. Soft tissue swelling about the right hip with associated intramuscular hematomas. Discharge Instructions to patient/family Please see electronic discharge instructions given to patient. Discharge Medications Reviewed and agree with Discharge Medication list on patient's Discharge Instruction sheet Clinical Quality Measures DVT/VTE Risk/Contraindication: Risk Factor Score Per Nursin RFS Level Per Nursing on Admit: 4+=Very High RICCI CHAVARRIA MD Jul 26, 2019 13:29 POS
[2019-07-26] MEDS ORDERED: ACHD5005 PO (13:33)
[2019-07-26] MEDS ORDERED: LISI-552 PO (13:33)
[2019-07-26] MEDS ORDERED: CLIN300C11 PO (13:34)
--- NOTE | 2019-07-26 13:35 | Discharge Instructions ---
Discharge [facility] Reconcile Patient Problems Problems Reviewed?: Yes Discharge Medications New, Converted or Re-Newed RX: RX on Chart New Medications: Clindamycin HCl (Clindamycin HCl) 300 Mg Capsule 300 MG PO TID, #21 CAP Hydrocodone Bit/Acetaminophen (Hydrocodone/Acetaminophen 5/325mg Tablet) 1 Tab Tab 1-2 TAB PO Q4H PRN for PAIN-MODERATE, #30 TAB Lisinopril (Lisinopril) 20 Mg Tablet 20 MG PO DAILY, #30 TAB Continued Medications: Fluoxetine HCl (Prozac) 40 Mg Capsule 80 MG PO DAILY, CAP Ibuprofen (Advil) 200 Mg Tablet 800 MG PO TID PRN for PAIN-MILD, TAB Metoprolol Tartrate (Metoprolol Tartrate) 100 Mg Tablet 100 MG PO BID, TAB Multivitamin (Multivitamins) 1 Each Tablet 1 TAB PO DAILY, TAB Zonisamide (Zonegran) 100 Mg Capsule 100 MG PO DAILY, CAP Zonisamide (Zonegran) 100 Mg Capsule 100 MG PO BID PRN for SEIZURE ACTIVITY, CAP Patient Instructions Goal/Follow Up Appt: You have a f.u with Michael Truong on Aug 01 @ 1020 Patient Instructions: - Make sure to complete your antibiotics - Monitor redness and swelling Activity & Diet Discharge Diet: Cardiac Diet Activity as Tolerated: Yes Orders-Post D/C & Referrals Pneu Vac Indicated: Yes Copy Copies To 1: Michael HENRIQUEZ HOLLY R MD Jul 26, 2019 13:35 POS
--- NOTE | 2019-07-26 14:05 | Physical Therapy Daily Note ---
PT Daily Note-Current Subjective pt sitting EOB pre-tx. pt agrees to PT this afternoon. pt reports 4/10 pain in the R LE at this time. pt's in the room for duration of therapy. Pt reports she believes she maybe going home this afternoon. Appearance pt sitting in recliner with feet down post-tx with in room. pt with call light, room phone, tray table in reach and all needs met at this time. Mental Status Patient Orientation: Person, Place, Time, Situation Attachments: IV Transfers SCALE: Activities may be completed with or without assistive devices. 3-Kjodhxtdvd-cbjodek completes the activity by him/herself with no assistance from a helper. 5-Set-up or Clean-up Assistance-helper sets up or cleans up; patient completes activity. [place] assists only prior to or following the activity. 4-Supervision or Touching Assistance-helper provides verbal cues and/or touching/steadying and/or contact guard assistance as patient completes activity. Assistance may be provided throughout the activity or intermittently. 3-Partial/Moderate Assistance-helper does LESS THAN HALF the effort. [place] lifts, holds or supports trunk or limbs, but provides less than half the effort. 2-Substantial/Maximal Assistance-helper does MORE THAN HALF the effort. [place] lifts or holds trunk or limbs and provides more than half the effort. 3-Lakvsfnbm-xyaned does ALL the effort. Patient does none of the effort to complete the activity. Or, the assistance of 2 or more helpers is required for the patient to complete the activity. If activity was not attempted, code reason: 7-Patient Refused. 9-Not Applicable-not attempted and the patient did not perform the activity before the current illness, exacerbation or injury. 10-Not Attempted due to Environmental Limitations-(lack of equipment, weather restraints, etc.). 88-Not Attempted due to Medical Conditions or Safety Concerns. Sit to Stand (QC): 6 Weight Bearing Right Lower Extremity: Right Touch Toe Bearing Left Lower Extremity: Left Weight Bearing/Tolerated Toe touch weight bearing on RLE Gait Training Distance: 300' Walk 10 feet (QC): 6 Walk 50 ft with 2 Turns(QC): 6 Walk 150 ft (QC): 6 Gait Assistive Device: FWW pt maintains WB status through ambulation. Wheelchair Training Does the Pt Use a Wheelchair?: No Stair Training Stair Training: Handrails/: No handrail #of Steps: 10 1 Step (curb) (QC): 1 4 Steps (QC): 1 Stairs: Pattern: Hops pt has no handrails at home so pt practiced ambulating stairs with B/L modx2 hand holds. Pt could use hand holds to put weight through in order to maintain TTWB on the RLE. Pt was educated to step up steps with the LLE first and down steps with the RLE first. Treatments Pt performed transfer training, skilled ambulation training, and skilled stair training, and education this date. Assessment Current Status: Good Progress Pt able to ascend/descend steps with modAx2 for B/L handholds as she will at home without handrails. Pt is able to stand and ambulate independent for increased distance with FWW and is limited in distance by UE fatigue from using the FWW. PT Director Of [employer] Goals Skilled Nursing Goals PT Director Of [employer] Goals Time Frame: Aug 04, 2019 Sit to Lying (QC): 6 Lying-Sitting on Side/Bed(QC): 6 Sit to Stand (QC): 6 Roll Left to Right (QC): 6 Chair/Sox-xc-Jfvdx Xfer(QC): 6 Car Transfer (QC): 6 Does the Patient Walk: Yes Distance: 200' Walk 10 feet (QC): 6 Walk 10ft-Uneven Surface(QC): 6 Walk 50ft with 2 Turns (QC): 6 Walk 150 ft (QC): 6 Gait Assistive Device: FWW # of Steps: 3 1 Step (curb) (QC): 6 PT Plan Problem List Problem List: Activity Tolerance, Functional Strength, Safety, Balance, Gait, Transfer Treatment/Plan Treatment Plan: Continue Plan of Care Treatment Plan: Bed Mobility, Education, Functional Activity Christina, Functional Strength, Gait, Safety, Therapeutic Exercise, Transfers Treatment Duration: Aug 04, 2019 Frequency: 11 times per week Estimated Hrs Per Day: .5 hour per day Patient and/or Family Agrees t: Yes Safety Risks/Education Patient Education: Gait Training, Transfer Techniques, Steps, Correct Positioning, Safety Issues Teaching Recipient: Patient Teaching Methods: Demonstration, Discussion Response to Teaching: Return Demonstration, Reinforcement Needed Time/GCodes Time In: 1342 Time Out: 1354 Total Billed Treatment Time: 12 Total Billed Treatment 1 visit FA MEHRAN DIAZ PT Jul 26, 2019 14:05 POS
[2019-07-26 14:10] VITALS: BP 169/82
== END 2019-07-26 14:10 | disposition home or self-care (01) ==
LOC: EDUNIT# 21:09 → ER 21:11 → 4TH 07-25 00:16
PROVIDERS: ADMIT Family Medicine; ATTEND Family Medicine
DX: L03.115 Cellulitis of right lower limb (principal); S72.001A Fracture of unspecified part of neck of right femur, initial encounter for closed fracture; M25.551 Pain in right hip; N17.9 Acute kidney failure, unspecified; I10 Essential (primary) hypertension; G40.909 Epilepsy, unspecified, not intractable, without status epilepticus; F17.210 Nicotine dependence, cigarettes, uncomplicated; W01.0XXA Fall on same level from slipping, tripping and stumbling without subsequent striking against object, initial encounter; Z88.2 Allergy status to sulfonamides; Z79.899 Other long term (current) drug therapy
CPT/HCPCS: 36415; 80048; 80053; 81000; 85007; 85025; 85027; 85610; 85730; 86141; 93005; 96361; 96365; 96372; 96375; G0378

== ENCOUNTER → 2019-07-24 | Outpatient (CLI) | payer SELFPAY ==
[~2019-07-24] MED LIST: ACHD5005 PO; AMOX500C2 PO; CLIN300C11 PO; CLIN300C3 PO; DICL75TA2 PO; FLUO20CA25 PO; FLUO40CA12 PO; IBUP-30 PO; LISI-552 PO; LOSA1TAB3 PO; METO100T12 PO; MTP50T PO; MULT1TAB69 PO; NF-ZONI100 PO; PRD5T PO
--- NOTE | 2019-07-24 17:28 | Diagnostic Imaging Report ---
PROCEDURE: CT pelvis without contrast. TECHNIQUE: Multiple contiguous axial images were obtained through the pelvis without the use of intravenous contrast. Sagittal and coronal reformations were performed. Auto Exposure Controls were utilized during the CT exam to meet ALARA standards for radiation dose reduction. INDICATION: Fall, pain. COMPARISON: None available. FINDINGS: Grade I anterolisthesis of L5 on S1. Advanced degenerative changes are noted within the partially visualized lower lumbar spine. Bilateral neural foraminal stenosis at L5-S1 is present, right greater than left. The sacrum appears intact. Recent appearing nondisplaced right femoral subcapital fracturing identified. Additionally, fracturing of the right greater trochanter is present. The main fracture fragment is displaced posteromedially by nearly 1 cm. No additional acute fracture. No dislocation. Mvte-um-dcoyykpu degenerative changes of the bilateral hips with associated subchondral cyst formation within the right acetabular roof. The bilateral sacroiliac joints are intact with vacuum phenomenon present. The pubic symphysis is intact. Enlargement of the right iliopsoas musculature. 1.5 cm rounded hypodensity is present within the right inguinal region adjacent to the right iliopsoas musculature and possibly associated with the right iliopsoas musculature. This is best seen on series 2 image 133. Additional soft tissue swelling about the right hip. Scattered vascular calcifications. IMPRESSION: Recent nondisplaced right subcapital femoral neck fracture. Mildly displaced and distracted recent appearing right greater trochanteric fracture. Scattered degenerative changes, particularly within the lower lumbar spine were there is resulting bilateral neural foraminal stenosis. Hypodensity within the right inguinal region is felt to relate to intramuscular hematoma with possible slight tearing of the right iliopsoas musculature. Focal enlarged lymph node felt less likely. Ultrasound versus contrast enhanced CT would help to further evaluate. Soft tissue swelling about the right hip with associated intramuscular hematomas. CRITICAL FINDING Report given to Urgent Care Nurse (Shayne) at 5:27 p.m. 07/24/2019/cb Dictated by: Dictated on workstation # [id number]
== END ==
LOC: RAD 11:52
PROVIDERS: ATTEND Family Medicine
DX: S72.001A Fracture of unspecified part of neck of right femur, initial encounter for closed fracture (principal); M79.89 Other specified soft tissue disorders; S70.01XA Contusion of right hip, initial encounter
CPT/HCPCS: 72192

== ENCOUNTER 2019-08-02 15:18 | Emergency (ER) | payer SELFPAY ==
[~2019-08-02] VITALS: Ht 167.7 cm; Wt 55.4 kg
[~2019-08-02 15:18] MED LIST changes: +ACHD5005 PO; +AMOX500C2 PO; +CLIN300C11 PO; +FLUO40CA12 PO; +IBUP-30 PO; +LISI-552 PO; +METO100T12 PO; +MULT1TAB69 PO; +NF-ZONI100 PO
--- NOTE | 2019-08-02 16:34 | NUR ---
PT IN ULTRA SOUND
--- NOTE | 2019-08-02 16:50 | NUR ---
UNABLE TO FEEL PT PULSE ON R FOOT, UNABLE TO FIND PULSE W ULTRASOUND
--- NOTE | 2019-08-02 17:00 | NUR ---
IV IN L AC OUT, IV RESTARTED IN L EJ BY DR POLO, #18. IV BY ULTRASOUND TO R AC BY DR POLO
[2019-08-02 17:13] LABS: BASOPHILS # (AUTO) 0.1 10^3/uL (0.0-0.1); BASOPHILS % (AUTO) 1 % (0-10); EOSINOPHILS # (AUTO) 1.3 10^3/uL (0.0-0.3); EOSINOPHILS % (AUTO) 12 % (0-10); HEMATOCRIT 34 % (35-52); HEMOGLOBIN 10.9 G/DL (11.5-16.0); LYMPHOCYTES # (AUTO) 2.4 X 10^3 (1.0-4.0); LYMPHOCYTES % (AUTO) 24 % (12-44); MEAN CORPUSCULAR HEMOGLOBIN 30 PG (25-34); MEAN CORPUSCULAR HGB CONC 32 G/DL (32-36); MEAN CORPUSCULAR VOLUME 94 FL (80-99); MEAN PLATELET VOLUME 9.8 FL (7.4-10.4); MONOCYTES # (AUTO) 0.8 X 10^3 (0.0-1.0); MONOCYTES % (AUTO) 8 % (0-12); NEUTROPHILS # (AUTO) 5.6 X 10^3 (1.8-7.8); NEUTROPHILS % (AUTO) 55 % (42-75); PLATELET COUNT 511 10^3/uL (130-400); RED CELL DISTRIBUTION WIDTH 15.2 % (10.0-14.5); WHITE BLOOD COUNT 10.2 10^3/uL (4.3-11.0)
--- NOTE | 2019-08-02 17:18 | Diagnostic Imaging Report ---
INDICATION: Claudication of the right lower extremity. History of hypertension and smoking. COMPARISON: None. TECHNIQUE: Routine grayscale, color flow and duplex evaluation of the right lower extremity of the menarcheal system was performed. FINDINGS: There is scattered echogenic atherosclerotic disease throughout the right lower extremity arterial system. Normal triphasic waveform is identified within the right common femoral artery as well as the proximal and mid portions of the right superficial femoral artery. There is mixed monophasic and biphasic flow within the distal superficial femoral artery. Flow then continues as monophasic through the popliteal artery as well as the calf arteries. Diminished peak systolic velocities are also noted within the distal posterior tibial artery and dorsalis pedis artery. Despite this, grayscale and color flow images show no focal stenosis within the right common femoral or superficial femoral arteries. Visualized portions of the profunda femoral artery are patent. IMPRESSION: Scattered echogenic atherosclerotic disease with abnormal monophasic waveform and diminished peak systolic velocities within the popliteal artery and calf arteries, but no sonographic evidence of focal hemodynamically significant stenosis. Dictated by: Dictated on workstation # [id number]
[2019-08-02 17:32] LABS: ALBUMIN 4.2 GM/DL (3.2-4.5); BILIRUBIN,TOTAL 0.2 MG/DL (0.1-1.0); CALCIUM 9.5 MG/DL (8.5-10.1); CREATININE SERUM 1.84 MG/DL (0.60-1.30); POTASSIUM 4.4 MMOL/L (3.6-5.0); TOTAL PROTEIN 7.2 GM/DL (6.4-8.2)
--- NOTE | 2019-08-02 17:38 | ED Lower Extremity ---
General Chief Complaint: Lower Extremity Stated Complaint: R LEG POOR CIRCULATION Nursing Triage Note: Pt to ED in wheelchair. Pt reports recent discharge from hospital for fractured R hip. Pt now concerned about circulation in R foot. Pt saw PCP (Sakina Truong) today and was sent to ED. R toes discolored. This nurse unable to plapate pulse or R foot. Pt reports pain in R foot and hip. Nursing Sepsis Screen: No Definite Risk Source: patient Exam Limitations: no limitations History of Present Illness Date Seen by Provider: Aug 02, 2019 Time Seen by Provider: 17:42 Initial Comments To ER with reports of no holes being found on her routine follow-up visit in the right foot. She was admitted the hospital from July 24 to for a right hip fracture that was sustained during the fall on July 08, bruising and redness to the right foot. She was actually admitted for cellulitis right lower extremity, she states that the bruising and redness is markedly improved, the pain is still about a 5 out of 10, during follow-up visit today the dorsalis pedis pulse was unable to be palpated. She does smoke one half pack of cigarettes per day. She is not on aspirin or Plavix. Not diabetic. No history of peripheral stenting. Onset: just prior to arrival Severity: moderate Pain/Injury Location: right foot Method of Injury: fell Modifying Factors: Worse With Movement (Daily but sports) Allergies and Home Medications Allergies Coded Allergies: Sulfa (Sulfonamide Antibiotics) (Verified Allergy, Unknown, 07/25/19) Home Medications Clindamycin HCl 300 Mg Capsule, 300 MG PO TID Prescribed by: RICCI CHAVARRIA on 07/26/19 1334 Fluoxetine HCl 40 Mg Capsule, 80 MG PO DAILY, (Reported) Hydrocodone Bit/Acetaminophen 1 Tab Tab, 1-2 TAB PO Q4H PRN for PAIN-MODERATE Prescribed by: RICCI CHAVARRIA on 07/26/19 1333 Ibuprofen 200 Mg Tablet, 800 MG PO TID PRN for PAIN-MILD, (Reported) Lisinopril 20 Mg Tablet, 20 MG PO DAILY Prescribed by: RICCI CHAVARRIA on 07/26/19 1333 Metoprolol Tartrate 100 Mg Tablet, 100 MG PO BID, (Reported) Multivitamin 1 Each Tablet, 1 TAB PO DAILY, (Reported) Zonisamide 100 Mg Capsule, 100 MG PO DAILY, (Reported) Zonisamide 100 Mg Capsule, 100 MG PO BID PRN for SEIZURE ACTIVITY, (Reported) Patient Home Medication List Home Medication List Reviewed: Yes Review of Systems Constitutional: see HPI EENTM: see HPI Respiratory: no symptoms reported Cardiovascular: no symptoms reported Genitourinary: no symptoms reported Musculoskeletal: see HPI Skin: see HPI Psychiatric/Neurological: No Symptoms Reported Past Fpufcce-Wwnutx-Kewocz Hx Patient Social History Alcohol Use: Denies Use Number of Drinks Today: AA Alcohol Beverage of Choice: Beer Recreational Drug Use: No Smoking Status: Current Everyday Smoker Type Used: Cigarettes Recent Foreign Travel: No Contact w/Someone Who Travel: No Recent Infectious Disease Expo: No Recent Hopitalizations: Yes (07/2019 hip fx) Immunizations Up To Date Tetanus Booster (TDap): Unknown PED Vaccines UTD: Yes Date of Influenza Vaccine: Jun 24, 2019 Past Medical History Surgeries: Yes (BOWEL RESECTION) Bowel Surgery, Section Respiratory: No Cardiac: Yes Hypertension Neurological: No BUSPERSON History: Menopausal Genitourinary: No Gastrointestinal: Yes (BOWEL RESECTION) Musculoskeletal: Yes Fractures Endocrine: No HEENT: No Cancer: No Psychosocial: No Integumentary: No Blood Disorders: No Adverse Reaction/Blood Tranf: No Family Medical History No Pertinent Family Hx Physical Exam Vital Signs Vital Signs - First Documented 08/02/19 16:07 Temp 36.6 Pulse 77 Resp 15 B/P (MAP) 131/78 (95) Pulse Ox 97 O2 Delivery Room Air Capillary Refill : Less Than 3 Seconds Height, Weight, BMI Height: '" Weight: lbs. oz. kg; 19.00 BMI Method:Stated General Appearance: WD/WN, no apparent distress HEENT: PERRL/EOMI, normal ENT inspection Neck: non-tender, full range of motion Respiratory: no respiratory distress, no accessory muscle use (months I have) Hips: bilateral hip non-tender, bilateral hip normal inspection, bilateral hip normal range of motion Legs: bilateral leg non-tender, bilateral leg normal inspection Knees: bilateral knee non-tender, bilateral knee normal inspection, bilateral knee normal range of motion Ankles: bilateral ankle non-tender, bilateral ankle normal inspection, bilateral ankle normal range of motion Feet: bilateral foot non-tender, bilateral foot normal inspection, bilateral foot normal range of motion; right foot other (the scan of the right foot is calm: Appearance to the left foot. I am not able to palpate a dorsalis pedis pulse on either foot. I am able to Doppler blood flow in the dorsalis pedis artery on the left I'm not able to do so on the right. She does have capillary refill of the very tip of the toes at 3-4 seconds on all toes on both feet, this is symmetrical.) Neurologic/Psychiatric: alert, normal mood/affect Skin: normal color, warm/dry Progress/Results/Core Measures Results/Orders Lab Results Laboratory Tests Test 08/02/19 17:05 Range/Units White Blood Count 10.2 4.3-11.0 10^3/uL Red Blood Count 3.60 L 4.35-5.85 10^6/uL Hemoglobin 10.9 L 11.5-16.0 G/DL Hematocrit 34 L 35-52 % Mean Corpuscular Volume 94 80-99 FL Mean Corpuscular Hemoglobin 30 25-34 PG Mean Corpuscular Hemoglobin Concent 32 32-36 G/DL Red Cell Distribution Width 15.2 H 10.0-14.5 % Platelet Count 511 H 130-400 10^3/uL Mean Platelet Volume 9.8 7.4-10.4 FL Neutrophils (%) (Auto) 55 42-75 % Lymphocytes (%) (Auto) 24 12-44 % Monocytes (%) (Auto) 8 0-12 % Eosinophils (%) (Auto) 12 H 0-10 % Basophils (%) (Auto) 1 0-10 % Neutrophils # (Auto) 5.6 1.8-7.8 X 10^3 Lymphocytes # (Auto) 2.4 1.0-4.0 X 10^3 Monocytes # (Auto) 0.8 0.0-1.0 X 10^3 Eosinophils # (Auto) 1.3 H 0.0-0.3 10^3/uL Basophils # (Auto) 0.1 0.0-0.1 10^3/uL Neutrophils % (Manual) 55 % Lymphocytes % (Manual) 22 % Monocytes % (Manual) 7 % Eosinophils % (Manual) 15 % Band Neutrophils % Blood Morphology Comment NORMAL Sodium Level 137 135-145 MMOL/L Potassium Level 4.4 3.6-5.0 MMOL/L Chloride Level 101 98-107 MMOL/L Carbon Dioxide Level 24 21-32 MMOL/L Anion Gap 12 5-14 MMOL/L Blood Urea Nitrogen 27 H 7-18 MG/DL Creatinine 1.84 H 0.60-1.30 MG/DL Estimat Glomerular Filtration Rate 28 BUN/Creatinine Ratio 15 Glucose Level 86 70-105 MG/DL Calcium Level 9.5 8.5-10.1 MG/DL Corrected Calcium 9.3 8.5-10.1 MG/DL Total Bilirubin 0.2 0.1-1.0 MG/DL Aspartate Amino Transf (AST/SGOT) 21 5-34 U/L Alanine Aminotransferase (ALT/SGPT) 14 0-55 U/L Alkaline Phosphatase 92 40-136 U/L Total Protein 7.2 6.4-8.2 GM/DL Albumin 4.2 3.2-4.5 GM/DL My Orders Orders - ELZA COLES APRN Us Right Low Ext [id number] (08/02/19 16:15) Cbc With Automated Diff (08/02/19 16:21) Comprehensive Metabolic Panel (08/02/19 16:21) Manual Differential (08/02/19 17:05) Aspirin Enteric Coated Tablet (Ecotrin T (08/02/19 18:00) Vital Signs/I&O 08/02/19 16:07 Temp 36.6 Pulse 77 Resp 15 B/P (MAP) 131/78 (95) Pulse Ox 97 O2 Delivery Room Air Blood Pressure Mean: 95 POS Diagnostic Imaging Diagonstic Imaging: Xray Comments NAME: [facility] REC#: [id number] PT STATUS: REG ER : 1955 PHYSICIAN: ELZA COLES APRN ADMIT DATE: 08/02/19/ER Draft POSDate of Exam:08/02/19 US RIGHT LOW EXT [id number] INDICATION: Claudication of the right lower extremity. History of hypertension and smoking. COMPARISON: None. TECHNIQUE: Routine grayscale, color flow and duplex evaluation of the right lower extremity of the menarcheal system was performed. FINDINGS: There is scattered echogenic atherosclerotic disease throughout the right lower extremity arterial system. Normal triphasic waveform is identified within the right common femoral artery as well as the proximal and mid portions of the right superficial femoral artery. There is mixed monophasic and biphasic flow within the distal superficial femoral artery. Flow then continues as monophasic through the popliteal artery as well as the calf arteries. Diminished peak systolic velocities are also noted within the distal posterior tibial artery and dorsalis pedis artery. Despite this, grayscale and color flow images show no focal stenosis within the right common femoral or superficial femoral arteries. Visualized portions of the profunda femoral artery are patent. IMPRESSION: Scattered echogenic atherosclerotic disease with abnormal monophasic waveform and diminished peak systolic velocities within the popliteal artery and calf arteries, but no sonographic evidence of focal hemodynamically significant stenosis. Dictated on workstation # [id number] Dict: 08/02/19 1703 Trans: 08/02/19 1717 PJE [id number] Interpreted by: DIMITRIOS GALLO MD Electronically signed by: Departure Communication (Admissions) Spoke with Dr. Corona at [facility], he is unable to evaluate the patient directly at this time but based on my report, outpatient close follow-up would be appropriate putting her on aspirin. She does have capillary refill 3-4 seconds on the great toe left foot and right foot, each foot is the same t emperature.Dr. Corona can see her in the clinic tomorrow morning. Family agrees to take her make sure she goes. Spoke with Dr. POLO, he agrees with plan of care. Impression Primary Impression: Severe peripheral arterial disease Disposition: 01 HOME, SELF-CARE Condition: Stable Departure-Patient Inst. Decision time for Depature: 17:57 Referrals: [facility] (PCP) Primary Care Physician RICCI CHAVARRIA MD (Family) Primary Care Physician Patient Instructions: Peripheral Vascular (Arterial) Disease (DC) Add. Discharge Instructions: 1. Medication as directed 2. Return to ER for any worsening or intolerable pain 3. Show up to Dr. Hernandez office tomorrow at [facility] Address: [address] [place] [address] [place], [place] [id number] [phone] All discharge instructions reviewed with patient and/or family. Voiced understanding. ELZA COLES APRN Aug 02, 2019 17:38 POS
[2019-08-02 17:40] LABS: EOSINOPHILS % (MANUAL) 15 %; LYMPHOCYTES % (MANUAL) 22 %; MONOCYTES % (MANUAL) 7 %; NEUTROPHILS % (MANUAL) 55 %; RBC MORPH NORMAL
[2019-08-02] MEDS ORDERED: ASPIRIN E.C. 325 MG (ECOTRIN) TABLET PO ONE (18:00)
[2019-08-02] MEDS ORDERED: ASPIRIN 325 MG (5 GR) TABLET ONE (18:13)
[2019-08-02] MEDS ORDERED: RX-HYDROCODONE/APAP 5/325 MG #4 TAB PK PO PRN (18:15)
[2019-08-02 18:21] VITALS: BP 131/78
== END 2019-08-02 18:21 | disposition home or self-care (01) ==
LOC: EDUNIT# 15:18 → ER 15:20
DX: I73.9 Peripheral vascular disease, unspecified (principal); I10 Essential (primary) hypertension; F17.210 Nicotine dependence, cigarettes, uncomplicated; Z79.02 Long term (current) use of antithrombotics/antiplatelets; Z88.2 Allergy status to sulfonamides
CPT/HCPCS: 36415; 80053; 85007; 85027; 93926